=== PATIENT | male | born 1985 | race Caucasian/White ===

== ENCOUNTER 2023-10-31 19:09 | Emergency (ER) | payer OTHER ==
[~2023-10-31] VITALS: Ht 180.3 cm; Wt 77.0 kg
[2023-10-31] MEDS ORDERED: LIDOCAINE/RACEPINEP/TETRACAINE 3 ML SYR TOP ONE (19:45)
[2023-10-31] MEDS ORDERED: DOXYCYCLINE HYCLATE 100 MG HOME.PACK PO ONE (21:30)
[2023-10-31 21:36] VITALS: BP 120/80
== END 2023-10-31 21:37 | disposition home or self-care (01) ==
LOC: ED 19:09
DX: S81.811A Laceration without foreign body, right lower leg, initial encounter (principal); W01.0XXA Fall on same level from slipping, tripping and stumbling without subsequent striking against object, initial encounter; Y93.02 Activity, running; Z88.0 Allergy status to penicillin
CPT/HCPCS: 12002; 99282-25; A9270